=== PATIENT | male | born 1950 | race Caucasian/White ===

== ENCOUNTER 2020-02-24 14:18 | Emergency (ER) | payer OTHER ==
[~2020-02-24] VITALS: Ht 154.9 cm; Wt 49.9 kg
[~2020-02-24 14:18] MED LIST: AMIT50TA27 PO; FOLI1TAB19 PO; MULT1CAP1 PO; PB65I PO; PHEN100C10 PO
[2020-02-24 14:22] VITALS: BP 151/86
--- NOTE | 2020-02-24 14:26 | NUR ---
Pt wheelchair assisted to lobby by mine production engineer
[2020-02-24 14:53] VITALS: BP 151/86
--- NOTE | 2020-02-24 14:53 | NUR ---
XRAY AT BEDSIDE
--- NOTE | 2020-02-24 14:53 | NUR ---
69 Y/O MALE C/O RIGHT LEG S/P MECHANICAL FALL TODAY AT [facility]. CAREGIVER AT BEDSIDE STATES THAT PT WAS WALKING AND RIGHT LEG SUDDENLY GAVE OUT, CAUSING THE PATIENT TO FALL ON TO RIGHT KNEE. PT IMMEDIATELY TRIED TO GET UP AND FELL AGAIN, CAUSING ABRASIONS TO RIGHT FOREARM, NO OBVIOUS DEFORMITY NOTED. SMALL CUT NOTED ON RIGHT KNEE. RESP EVEN AND UNLABORED. VSS PMH: INTELLECTUAL DISABILITY, SEIZURES NKA
--- NOTE | 2020-02-24 15:30 | NUR ---
GLO MORRIS AT BEDSIDE
[2020-02-24] MEDS ORDERED: cefTRIAXone 1,000 MG VIAL ONE (15:52)
[2020-02-24] MEDS ORDERED: AZITHROMYCIN 250 MG TAB ONE (15:52)
== END 2020-02-24 16:15 | disposition home or self-care (01) ==
LOC: MED 14:18
DX: S80.01XA Contusion of right knee, initial encounter (principal); Z79.899 Other long term (current) drug therapy; W18.39XA Other fall on same level, initial encounter; Y93.89 Activity, other specified; Y92.89 Other specified places as the place of occurrence of the external cause; Y99.8 Other external cause status
CPT/HCPCS: 73562; 99283; Q0092; J0696